=== PATIENT | female | born 1975 | race Caucasian/White ===

== ENCOUNTER 2019-07-21 12:18 | Emergency (ER) | payer SELFPAY ==
[2019-07-21] MEDS ORDERED: Sodium Chloride 0.9% 500 ML IV ONE (12:53)
--- NOTE | 2019-07-21 12:57 | EDM.PDOC ---
<Jayant Petit - Last Filed: 07/21/19 15:57> ED HPI GENERAL MEDICAL PROBLEM - General Chief Complaint: Abdominal Pain Stated Complaint: ABDOMINAL PAIN Time Seen by Provider: 07/21/19 12:40 Source of Information: Reports: Patient History Limitations: Reports: No Limitations - History of Present Illness INITIAL COMMENTS - FREE TEXT/NARRATIVE: 43 year old female who presents to the ED with complaints of abdominal pain. She was sent from [facility]. Pt has a history of 6 weeks of abdominal pain. Pt has a history of chronic back pain which she takes hydrocodone and flexeril for. She states that her abdominal pain feels similar to the cramping spasms that she has in her back. Pain is located in both upper quadrants and radiates down both sides of her abdomen laterally. Reports that the pain was constant on thursday and thursday, 4-5 days ago and so se went into the clinic on thursday as the hydrocodone did not take the pain away. States that she has had an abdominal ultrasound and xrays and she has not gotten any answers. Her abdomen has become more distended and firm and it is tender on palpation to the left lower quadrant. Only has a BM every 3-5 days which she said is normal for her. Denies issues with diarrhea or constipation. States that she still has her gallbladder and appendix. Admits to drinking alcohol daily 2 drinks. Abdomen Pain Score (Numeric/FACES): 9 - Related Data Allergies Allergy/AdvReac Type Severity Reaction Status Date / Time No Known Allergies Allergy Verified 07/21/19 12:27 Home Meds: Home Meds Cyclobenzaprine [Flexeril] 10 mg PO Q4HR 07/21/19 [History] Hydrocodone/Acetaminophen [Hydrocodon-Acetaminophen 5-325] 1 each PO Q4HR [History] Past Medical History Cardiovascular History: Reports: None Respiratory History: Reports: None Gastrointestinal History: Reports: None Genitourinary History: Reports: None [employer] History: Reports: Musculoskeletal History: Reports: None Neurological History: Reports: None Psychiatric History: Reports: None Endocrine/Metabolic History: Reports: None Hematologic History: Reports: None Immunologic History: Reports: None Oncologic (Cancer) History: Reports: None Dermatologic History: Reports: None - Infectious Disease History Infectious Disease History: Reports: None - Past Surgical History HEENT Surgical History: Reports: Tonsillectomy Social & Family History - Tobacco Use Smoking Status *Q: Current Every Day Smoker Years of Tobacco use: 30 Packs/Tins Daily: 0.2 - Caffeine Use Caffeine Use: Reports: Soda - Recreational Drug Use Recreational Drug Use: No ED ROS GENERAL - Review of Systems Review Of Systems: ROS reveals no pertinent complaints other than HPI. Constitutional: Reports: No Symptoms HEENT: Reports: No Symptoms Respiratory: Reports: No Symptoms Cardiovascular: Reports: No Symptoms Endocrine: Reports: No Symptoms GI/Abdominal: Reports: Abdominal Pain. Denies: Black Stool, Bloody Stool, Constipation, Diarrhea, Decreased Appetite, Nausea, Vomiting : Reports: No Symptoms Musculoskeletal: Reports: Back Pain (chronic back pain) Skin: Reports: No Symptoms Neurological: Reports: No Symptoms Psychiatric: Reports: No Symptoms Hematologic/Lymphatic: Reports: No Symptoms Immunologic: Reports: No Symptoms ED EXAM, GI/ABD - Physical Exam Exam: See Below Exam Limited By: No Limitations General Appearance: Alert, WD/WN, No Apparent Distress Eyes: Bilateral: Normal Appearance Ears: Normal External Exam, Hearing Grossly Normal Nose: Normal Inspection Throat/Mouth: Normal Inspection, Normal Lips, Normal Voice, No Airway Compromise Head: Atraumatic, Normocephalic Neck: Normal Inspection, Supple, Non-Tender Respiratory/Chest: No Respiratory Distress, Lungs Clear, Normal Breath Sounds, No Accessory Muscle Use, Chest Non-Tender Cardiovascular: Normal Peripheral Pulses, Regular Rate, Rhythm, No Edema, No Murmur GI/Abdominal Exam: Normal Bowel Sounds, Distended, Rebound (left lower quadrant) . No: Guarding, Abnormal Bowel Sounds (Female) Exam: Deferred Rectal (Female) Exam: Deferred Back Exam: Normal Inspection, Full Range of Motion Extremities: Normal Inspection, Normal Range of Motion, Non-Tender, No Pedal Edema, Normal Capillary Refill Neurological: Alert, Oriented, Normal Cognition, No Motor/Sensory Deficits Psychiatric: Normal Affect, Normal Mood Skin Exam: Warm, Dry, Intact, Normal Color Lymphatic: No Adenopathy Course - Vital Signs Last Recorded V/S: Last Vital Signs Temp 36.4 C 07/21/19 12:25 Pulse 100 07/21/19 12:25 Resp 16 07/21/19 12:25 BP 161/100 H 07/21/19 12:25 Pulse Ox 99 07/21/19 12:25 - Orders/Labs/Meds Orders: Active Orders 24 hr Category Date Time Status Peripheral IV Care [RC] . DIRECTED Care 07/21/19 12:53 Active Sodium Chloride 0.9% [Normal Saline] 1,000 ml Med 07/21/19 14:00 Active IV ASDIRECTED Sodium Chloride 0.9% [Saline Flush] Med 07/21/19 12:53 Active 10 ml FLUSH ASDIRECTED PRN Peripheral IV Insertion Adult [OM.PC] Routine Oth 07/21/19 12:52 Ordered Medication Orders Sodium Chloride (Normal Saline) 1,000 mls @ 150 mls/hr IV ASDIRECTED LUCIANO Sodium Chloride (Saline Flush) 10 ml FLUSH ASDIRECTED PRN PRN Reason: Keep Vein Open Last Admin: 07/21/19 14:07 Dose: 10 ml Admin: 07/21/19 13:22 Dose: 10 ml Labs: Laboratory Tests 07/21/19 07/21/19 07/21/19 Range/Units 13:15 13:15 13:52 WBC 8.47 (3.98-10.04) K/mm3 RBC 4.64 (3.98-5.22) M/mm3 Hgb 14.1 (11.2-15.7) gm/dl Hct 41.7 (34.1-44.9) % MCV 89.9 (79.4-94.8) fl MCH 30.4 (25.6-32.2) pg MCHC 33.8 (32.2-35.5) g/dl RDW Std Deviation 40.0 (36.4-46.3) fL Plt Count 273 (182-369) K/mm3 MPV 9.1 L (9.4-12.3) fl Neut % (Auto) 71.1 (34.0-71.1) % Lymph % (Auto) 18.1 L (19.3-51.7) % Blanco % (Auto) 10.0 (4.7-12.5) % Eos % (Auto) 0.6 L (0.7-5.8) Baso % (Auto) 0.1 (0.1-1.2) % Neut # (Auto) 6.02 (1.56-6.13) K/mm3 Lymph # (Auto) 1.53 (1.18-3.74) K/mm3 Blanco # (Auto) 0.85 H (0.24-0.36) K/mm3 Eos # (Auto) 0.05 (0.04-0.36) K/mm3 Baso # (Auto) 0.01 (0.01-0.08) K/mm3 Sodium 141 (136-145) mEq/L Potassium 3.6 (3.5-5.1) mEq/L Chloride 102 (98-107) mEq/L Carbon Dioxide 29 (21-32) mEq/L Anion Gap 13.6 (5-15) BUN 7 (7-18) mg/dL Creatinine 0.9 (0.55-1.02) mg/dL Est Cr Clr Drug Dosing 59.57 mL/min Estimated GFR (MDRD) > 60 (>60) mL/min BUN/Creatinine Ratio 7.8 L (14-18) Glucose 100 (74-106) mg/dL Calcium 9.9 (8.5-10.1) mg/dL Total Bilirubin 0.6 (0.2-1.0) mg/dL GGT 25 (5-55) U/L AST 23 (15-37) U/L ALT 43 (14-59) U/L Alkaline Phosphatase 58 (46-116) U/L Total Protein 7.5 (6.4-8.2) g/dl Albumin 3.8 (3.4-5.0) g/dl Globulin 3.7 gm/dL Albumin/Globulin Ratio 1.0 (1-2) Lipase 66 L (73-393) U/L Urine Color Light yellow (Yellow) Urine Appearance Clear (Clear) Urine pH 8.5 H (5.0-8.0) Ur Specific Burton 1.015 (1.005-1.030) Urine Protein Negative (Negative) Urine Glucose (UA) Negative (Negative) Urine Ketones Trace H (Negative) Urine Occult Blood Negative (Negative) Urine Nitrite Negative (Negative) Urine Bilirubin Negative (Negative) Urine Urobilinogen 0.2 (0.2-1.0) Ur Leukocyte Esterase Negative (Negative) Urine RBC 0-5 (0-5) /hpf Urine WBC 0-5 (0-5) /hpf Ur Squamous Epith Cells 5-10 H (0-5) /hpf Urine Bacteria Rare (FEW) /hpf Urine Mucus Rare (FEW) /hpf Meds: Medications Generic Name Dose Route Start Last Admin Trade Name Freq PRN Reason Stop Dose Admin Sodium Chloride 1,000 mls @ 150 mls/hr 07/21/19 14:00 Normal Saline IV ASDIRECTED LUCIANO Sodium Chloride 10 ml 07/21/19 12:53 07/21/19 14:07 Saline Flush FLUSH 10 ml ASDIRECTED PRN Administration Keep Vein Open Discontinued Medications Generic Name Dose Route Start Last Admin Trade Name Freq PRN Reason Stop Dose Admin Diatrizoate Meglum/Diatrizoate Sod 120 ml 07/21/19 13:06 07/21/19 14:07 Gastrografin 37% PO 07/21/19 13:07 90 ml ONETIME ONE Administration Sodium Chloride 500 mls @ 999 mls/hr 07/21/19 12:53 07/21/19 13:20 Normal Saline IV 07/21/19 13:23 999 mls/hr .BOLUS ONE Administration Ibuprofen 600 mg 07/21/19 15:57 07/21/19 16:01 Motrin PO 07/21/19 15:58 600 mg ONETIME ONE Administration Iopamidol 100 ml 07/21/19 13:06 07/21/19 14:07 Isovue-300 (61%) IVPUSH 07/21/19 13:07 100 ml ONETIME ONE Administration - Re-Assessments/Exams Free Text/Narrative Re-Assessment/Exam: 07/21/19 13:14 I ordered a CBC, CMP, lipase, ggt, UA, and ct of abdomen and pelvis with contrast, and a 500cc bolus of NS. Free Text/Narrative Re-Assessment/Exam: 07/21/19 15:58 Pt having complaints of cramping pain in her back. I will order ibuprofen as this patient takes hydrocodone and I do not know how much tylenol she takes in a 24 hour period. Departure - Departure Disposition: Home, Self-Care 01 Clinical Impression: Abdominal pain of unknown cause - Discharge Information Referrals: Carina Mosher PA-C [Primary Care Provider] - Forms: ED Department Discharge Additional Instructions: Return to emergency room if any questions problems or worsening symptoms. Return in 24 hours if not improving. Start Cleopatra lax as a stool softener. This is [id number] follow directions on the container. Follow-up in the clinic on Thursday or Thursday. It is recommended you get a abdominal ultrasound to look at that ovarian cyst in 3-4 months. <ChristianKalpesh Judy - Last Filed: 07/21/19 16:22> Course - Re-Assessments/Exams Free Text/Narrative Re-Assessment/Exam: 07/21/19 16:16 Laboratory evaluation is for the most part absolutely unremarkable. We did review the x-ray she had done at the clinic this morning which really show much. With the uncertainty of her situation she did have a CT done which shows no acute causes for abdominal pain she's got some stool within the right colon and right-sided transverse colon. She has a 4.6 cm cyst in her right ovary is recommended she have ultrasound evaluation done with this in 3-4 months this is explained to the patient in no uncertain terms slightly prominent small bowel loops which most likely is thought to be related to obstipation slightly prominent air-filled filled: Within the upper abdomen which is also felt to be incidental nothing acute is otherwise seen. I have explained to the patient in no uncertain terms that I am not certain what is causing her abdominal pain however it could be the stool accumulation on the right side of the colon we'll try some mag citrate and see how she does. The patient agrees to return to emergency room in 24 hours if not improving certainly sooner if getting worse Departure - Departure Time of Disposition: 16:19
[2019-07-21] MEDS ORDERED: Iopamidol 612 MG/ML 100 ML Bottle IVPUSH ONE (13:06)
[2019-07-21] MEDS ORDERED: Diatrizoate Meglumine/Diatrizoate Sodium 37% 120 ML Bottle PO ONE (13:06)
[2019-07-21] MEDS: Sodium Chloride 0.9% 10 ML Syringe FLUSH PRN ×2 (13:22→14:07)
[2019-07-21] MEDS ORDERED: Sodium Chloride 0.9% 1,000 ML IV SCH (14:00)
--- NOTE | 2019-07-21 15:01 | CT ---
CT abdomen and pelvis Technique: Multiple axial sections were obtained from above the dome of the diaphragm inferiorly through the pubic symphysis. Intravenous and oral contrast was utilized. Delayed images were obtained through the bladder. Comparison: Previous abdominal x-ray performed on the same day. Findings: Gas-filled transverse and splenic flexure is noted which is slightly prominent in size. This is likely incidental. Focal increased stool is noted within the right side of the transverse colon and right colon. Small bowel is somewhat prominent in size. This appears to to be mostly due to obstipation rather than a real small bowel obstruction. Visualized lung bases show nothing acute. Liver contains no focal abnormality. Spleen appears within normal limits. Gallbladder contains no calcified gallstones. Adrenal glands show no nodule. Kidneys show symmetric contrast enhancement without hydronephrosis or mass. Pancreas is within normal limits. Aorta shows no aneurysm. No retroperitoneal adenopathy or mesenteric abnormalities are seen. Appendix is seen which is normal. No free fluid or inflammatory change is noted. Cyst is noted within the right ovary measuring 4.6 cm in size. Impression: 1. 4.6 cm cyst within the right ovary. Recommend follow-up pelvic ultrasound in 3-4 months to evaluate for persistence or hopeful resolution. 2. Mild increased stool within the right colon and within the right side of the transverse colon. 3. Slightly prominent small bowel loops which most likely relates to obstipation. 4. Slightly prominent air-filled colon within the upper abdomen which is also felt to be incidental. 5. Nothing acute is otherwise seen. Diagnostic code #3
[2019-07-21] MEDS ORDERED: Ibuprofen 600 MG Tab PO ONE (15:57)
== END 2019-07-21 16:34 | disposition home or self-care (01) ==
LOC: JD.ED 12:18
DX: R10.11 Right upper quadrant pain (principal); R10.12 Left upper quadrant pain; F17.210 Nicotine dependence, cigarettes, uncomplicated
CPT/HCPCS: 36415; 74177; 80053; 81001; 82977; 83690; 85025; 96360; 99284; A9270; J7040; Q9963; Q9967